=== PATIENT | female | born 1955 | race Caucasian/White ===

== ENCOUNTER → 2017-03-22 | Outpatient (CLI) | payer OTHER ==
[~2017-03-22] MED LIST: ATORVASTATIN CA80 MG PO; CELEXA20 MG PO; MULTI VITAMIN1 EACH PO; TROKENDI XR100 MG PO; VITAMIN D33000 UNIT PO
--- NOTE | ~2017-03-22 | CT57 ---
[facility] A Service of [facility] RADIOLOGY TEXT RESULTS PATIENT: JOE DE OLIVEIRA LOCATION: [facility] : 57 UNIT #: [id number] AGE: [address]: TRINA SWEENEY APRN SEX: F ORDER DR: [id number] [address] [address] [id number] O MR#: [id number] Acc #: [id number] NAME: JOE DE OLIVEIRA : 1955 SEX: F STUDY DATE/TIME: 03/22/2017 10:42 UNIT: [facility] ROOM: STUDY DESCRIPTION: CT Chest Wo Cont Attending Physician: Trina Sweeney Aprn Referring Physician: Trina Sweeney Aprn Ordering Physician: Trina Sweeney Aprn Primary Care Physician: Laurie Woo Aprn MEDICAL IMAGING REPORT This report is preliminary unless electronic signature is present. EXAM CT chest INDICATIONS Lung cancer screening. A 61-year-old female is a current smoker with 30 pack year history of smoking. TECHNIQUE CT of the thorax without contrast. Coronal and sagittal reconstructions were obtained. Exam was performed as a low dose chest CT utilizing lung cancer screening protocol. CTDI volume 2.96 mGy. DLP 110.89 mGy per centimeter. This CT exam was performed with one or more of the following radiation dose reduction techniques: automatic exposure control, adjustment of mA and/or kV according to patient size, and iterative reconstruction. COMPARISON None available. FINDINGS This is a negative lung cancer screening. No suspicious pulmonary findings are identified. There are a few benign calcified granulomas in the lung. Central airways are patent. There is mild emphysema. The thoracic aorta is normal in caliber. No pericardial or pleural effusion. There is a moderate hiatal hernia. There is a benign cyst in the lateral segment, left hepatic lobe. [facility] A Service [facility] RADIOLOGY TEXT RESULTS PATIENT: JOE DE OLIVEIRA LOCATION: [facility] : 57 UNIT #: [id number] AGE: [address]: TRINA SWEENEY REPAIR MILLER SEX: F ORDER DR: No acute osseous abnormalities. IMPRESSION 1. Negative lung cancer screening. 2. Emphysema. 3. Moderate hiatal hernia. ACR Lung-RADS classification 1: Negative examination. Recommendations: Annual lung cancer screening with low-dose chest CT. Dictated by... Marco A Webster M.D. THIS IS AN ELECTRONICALLY VERIFIED REPORT Marco A Webster M.D. at 03/25/2017 3:00 PM KENNEY/ashley TD: 03/22/2017 20:56 JOB #: [id number] MEDICAL IMAGING REPORT Page 1 of 1
== END | disposition home or self-care (01) ==
LOC: SCT 10:31
DX: F17.210 Nicotine dependence, cigarettes, uncomplicated (principal); J43.9 Emphysema, unspecified; K44.9 Diaphragmatic hernia without obstruction or gangrene
CPT/HCPCS: 71250

== ENCOUNTER → 2017-05-07 | Outpatient (CLI) | payer OTHER ==
--- NOTE | ~2017-05-07 | CT4 ---
[facility] A Service of [facility] RADIOLOGY TEXT RESULTS PATIENT: JOE DE OLIVEIRA [facility]: [facility] : 57 UNIT #: [id number] AGE: [address]: Alex Monteiro MD SEX: F ORDER DR: [id number] [facility] [address] [place], [place] [address] [id number] O MR#: [id number] Acc #: [id number] NAME: JOE DE OLIVEIRA : 1955 SEX: F STUDY DATE/TIME: 05/07/2017 8:37 UNIT: [facility] ROOM: STUDY DESCRIPTION: CT Abd and Pelv Wo Cont Attending Physician: Alex Monteiro M.D. Referring Physician: Alex Monteiro M.D. Ordering Physician: Alex Monteiro M.D. Primary Care Physician: Laurie Woo Aprn MEDICAL IMAGING REPORT This report is preliminary unless electronic signature is present EXAM CT abdomen and pelvis without contrast. INDICATION Left-sided abdominal pain and unexplained weight loss over the past month. PROCEDURE Unenhanced CT of the abdomen and pelvis. This CT exam was performed with one or more of the following radiation dose reduction techniques: automatic exposure control, adjustment of mA and/or kV according to patient size, and iterative reconstruction. COMPARISON 09/27/2009 FINDINGS ABDOMEN WITHOUT CONTRAST: Included lung bases are clear. 9 mm cyst in the left hepatic lobe. Spleen, kidneys, adrenal glands, pancreas have an unremarkable unenhanced appearance. Previous cholecystectomy. Moderate-sized hiatal hernia. Bowel loops are nondilated. There are diverticula throughout the sigmoid colon with no definitive evidence for active complication. Moderate amount of stool and fluid throughout the colon. There is thickening of the right side of the colon. Intraluminal lipoma in the rectum measures 3 cm. It previously measured up to 2.5 cm. The lipoma does not appear to be obstructive. PELVIS WITHOUT CONTRAST: Previous hysterectomy. No pelvic mass or fluid. No aggressive appearing bone lesion. IMPRESSION 1. There is a moderate amount of stool and fluid throughout the colon [facility] A Service of [facility] RADIOLOGY TEXT RESULTS PATIENT: JOE DE OLIVEIRA LOCATION: [facility] : 57 UNIT #: [id number] AGE: [address]: Aelx Monteiro MD SEX: F ORDER DR: suggesting diarrhea. 2. There is asymmetric thickening of the right colon compared with the left. Correlate for colitis. 3. No evidence for a small bowel obstruction. 4. Intraluminal lipoma in the rectum is slightly increased in size since 2008, but does not appear to be clearly obstructive. 5. Other findings as above. Dictated by... Nikolai Espino M.D. THIS IS AN ELECTRONICALLY VERIFIED REPORT Nikolai Espino M.D. at 05/09/2017 7:09 AM HANG/jaylan TD: 05/07/2017 16:38 JOB #: [id number] MEDICAL IMAGING REPORT Page 1 of 1 COPY
[2017-05-07 15:25] LABS: POC - CREATININE 1.21 mg/dL (0.44-1.03)
== END | disposition home or self-care (01) ==
LOC: CCAT 07:20
PROVIDERS: Surgery
DX: R10.9 Unspecified abdominal pain (principal); R63.4 Abnormal weight loss; K63.89 Other specified diseases of intestine; D17.79 Benign lipomatous neoplasm of other sites; K44.9 Diaphragmatic hernia without obstruction or gangrene; K57.30 Diverticulosis of large intestine without perforation or abscess without bleeding; Z90.49 Acquired absence of other specified parts of digestive tract
CPT/HCPCS: 74176; 82565

== ENCOUNTER → 2017-05-09 | Day surgery (SDC) | payer OTHER ==
--- NOTE | ~2017-05-09 | OR ---
Unit #: [id number] #: [id number] Patient: JOE DE OLIVEIRA [id number] [address] [address] [id number] O MR#: [id number] NAME: JOE DE OLIVEIRA ROOM: Date of Procedure: 05/09/2017 Admission Date: 05/09/2017 Surgeon: Alex Monteiro M.D. : 1955 Attending Physician: Alex Monteiro M.D. Primary Care Physician: Laurie Woo Aprn OPERATIVE REPORT PREOPERATIVE DIAGNOSES 1. Dysphagia. 2. Epigastric pain. 3. Abnormal weight loss. 4. Left lower quadrant pain. 5. Possible rectal prolapse. POSTOPERATIVE DIAGNOSES 1. Dysphagia. 2. Epigastric pain. 3. Abnormal weight loss. 4. Left lower quadrant pain. 5. Possible rectal prolapse. PROCEDURES PERFORMED 1. Esophagogastroduodenoscopy. 2. Biopsy of antrum for Helicobacter pylori testing. 3. Colonoscopy to terminal ileum. 4. Polypectomy with electrocautery snare at hepatic flexure with submucosal tattoo of polypectomy site. 5. Polypectomy with electrocautery snare at 40 cm. ANESTHESIA Monitored anesthesia care. FINDINGS The patient was found on upper endoscopy to have a large hiatal hernia and mild distal gastritis. On colonoscopy, the patient was found to have a normal terminal ileum, scattered sigmoid diverticula. She was found to have a small polyp excised from the area of the hepatic flexure with good hemostasis and submucosally tattooed. Another small polyp was found at 40 cm, and it was excised completely with electrocautery snare with good hemostasis. The patient was found to have at approximately 10 cm, large submucosal rectal lipoma. This was seen on CT scan. It has increased in size since 2008. SPECIMENS Sent to pathology. COMPLICATIONS None apparent. Unit #: [id number] #: [id number] Patient: JOE DE OLIVEIRA CONDITION The patient tolerated the procedure well. INDICATIONS FOR PROCEDURE The patient is a 61-year-old white female, who presents with some dysphagia as well as epigastric pain and left lower quadrant pain, some degree of abnormal weight loss and a possible rectal prolapse. The patient feels as if her rectum in turn and comes out and she has to manually to place it at times. It is notable that she had a recent CT scan, which revealed that the patient has a large submucosal rectal lipoma that has increased in size since 2008. She presents at this time for evaluation by upper and lower endoscopy. DESCRIPTION OF PROCEDURE After obtaining informed consent, the patient was brought to the endoscopy suite and after adequate monitored anesthesia care, had the endoscope placed through the mouth into the upper esophagus under direct vision. It was advanced to the second and third portion of the duodenum without difficulty with the lumen always in view. The duodenum was within normal limits as was the duodenal bulb. The pylorus opened normally. There was some mild distal gastritis present and a biopsy was obtained for Helicobacter pylori testing. On retroflexion back to the GE junction, the patient was found to have a large hiatal hernia. No other abnormalities were found in the proximal third, middle third, or incisura. On pulling back above the GE junction, there was no stenosis, stricture, or neoplasm seen. The remaining portion of the esophagus was within normal limits. Laryngeal structures were grossly normal as viewed from above. At this point in time, the colonoscope was placed through the anus and slowly advanced to the level of the cecum without difficulty and with lumen always in view. We were able to pass through the ileocecal valve into the terminal ileum. It appeared normal. The cecum and ileocecal valve appeared normal as well. The ascending colon was normal as was the proximal hepatic flexure. A small polyp was found in the mid hepatic flexure area. It was excised completely with electrocautery snare, retrieved with a mucus trap, sent to pathology. It was submucosally tattooed to aisha the area. There was good hemostasis. The remaining portion of the transverse colon, splenic flexure, and descending colon were normal. The sigmoid colon had a few scattered diverticula present. At 40 cm, a small polyp was found. It was excised completely with electrocautery snare, retrieved with a mucus trap, and sent to pathology. The remaining portion of the distal sigmoid colon and upper rectum were normal. At approximately 10 cm from the anal verge, there was a large submucosal rectal lipoma seen. Images were obtained. It had a soft pillow type sign. The remaining portion of the rectum was normal. On retroflexing in the rectum to the anorectal junction, the patient was found to have some mild internal hemorrhoids. The scope was removed without difficulty. The patient tolerated the procedure well and went from the endoscopy suite to the recovery area in stable condition. RECOMMENDATIONS Diverticular sheet given. Gastroesophageal reflux sheet given. High-fiber diet, lots of liquids, tucks or wipes p.r.n. Call Saturday for pathology report. We feel the patient should begin omeprazole as well for her large hiatal hernia and dysphagia. The patient will be contacted by Dr. Jamie Lucas of [facility] to be seen and evaluated for possible rectal prolapse and for the large rectal lipoma. Unit #: [id number] #: [id number] Patient: JOE DE OLIVEIRA Dictated by... Niall Soriano/nilda TD: 05/09/2017 16:47 JOB #: [id number] CC: Jamie Lucas M.D. [facility] OPERATIVE REPORT Page 1 of 1 X Alex Monteiro MD X PROCEDURE OPERATIVE NOTE
== END | disposition home or self-care (01) ==
LOC: COPS 11:08
DX: D12.3 Benign neoplasm of transverse colon (principal); K63.5 Polyp of colon; K44.9 Diaphragmatic hernia without obstruction or gangrene; K29.70 Gastritis, unspecified, without bleeding; K57.30 Diverticulosis of large intestine without perforation or abscess without bleeding; K64.8 Other hemorrhoids; R63.4 Abnormal weight loss; K21.9 Gastro-esophageal reflux disease without esophagitis; F17.210 Nicotine dependence, cigarettes, uncomplicated; G40.909 Epilepsy, unspecified, not intractable, without status epilepticus; M19.90 Unspecified osteoarthritis, unspecified site; F41.9 Anxiety disorder, unspecified; F32.9 Major depressive disorder, single episode, unspecified; E78.00 Pure hypercholesterolemia, unspecified; Z86.010 Personal history of colon polyps; Z87.19 Personal history of other diseases of the digestive system; Z90.49 Acquired absence of other specified parts of digestive tract; Z98.51 Tubal ligation status; Z98.890 Other specified postprocedural states; Z79.899 Other long term (current) drug therapy
CPT/HCPCS: 87077; 88305